=== PATIENT | male | born 1945 | race Caucasian/White ===

== ENCOUNTER → 2017-01-28 | Outpatient (CLI) | payer MEDICARE, OTHER ==
[~2017-01-28] VITALS: Ht 175.3 cm; Wt 97.6 kg
[~2017-01-28] MED LIST: BONIVA150 MG PO; CALCIUM 500500 MG PO; CALCIUM CITRATE1 TA1 PO; DULCOLAX STOOL100 MG PO; FOSAMAX70 MG PO; HCTZ 25MG TAB25 MG PO; HCTZ12.5TAB PO; LOVAZA1 GM PO; OYSTER CALCIUM500 M1 PO
[2017-01-28 06:54] VITALS: BP 129/77; PULSE 66
[2017-01-28 08:25] VITALS: BP 103/69; PULSE 61
== END ==
LOC: COL.RAD 06:30
DX: M54.5 Low back pain (principal)
CPT/HCPCS: J3301

== ENCOUNTER 2018-03-11 09:44 | Day surgery (SDC) | payer MEDICARE, OTHER ==
[~2018-03-11] VITALS: Ht 175.3 cm; Wt 91.6 kg
[2018-03-11 10:18] VITALS: BP 115/83; PULSE 65; TEMP 98.2
[2018-03-11 12:25] VITALS: BP 115/63; PULSE 59; TEMP 97.6
[2018-03-11 12:40] VITALS: BP 117/90; PULSE 57
[2018-03-11 12:55] VITALS: BP 110/74; PULSE 53
[2018-03-11 13:10] VITALS: BP 104/80; PULSE 50
[2018-03-11 13:19] VITALS: BP 94/70; PULSE 55
== END 2018-03-11 13:20 | disposition home or self-care (01) ==
LOC: SDCO 09:44
DX: K22.2 Esophageal obstruction (principal); K44.9 Diaphragmatic hernia without obstruction or gangrene; K29.60 Other gastritis without bleeding; K29.30 Chronic superficial gastritis without bleeding; K31.89 Other diseases of stomach and duodenum; I10 Essential (primary) hypertension; Z85.72 Personal history of non-Hodgkin lymphomas
CPT/HCPCS: OP; C1726; J2250; J3010; J7030

== ENCOUNTER → 2020-03-30 | Outpatient (CLI) | payer MEDICARE, OTHER ==
[~2020-03-30] VITALS: Ht 175.3 cm; Wt 92.5 kg
[~2020-03-30] MED LIST changes: +PROSCAR 5MG5 MG PO
[2020-03-30 12:16] VITALS: BP 169/85; PULSE 79
[2020-03-30 13:00] VITALS: BP 172/93; PULSE 76
== END ==
LOC: COL.RAD 12:00
DX: C82.08 Follicular lymphoma grade I, lymph nodes of multiple sites (principal)

== ENCOUNTER 2022-01-05 09:38 | Day surgery (SDC) | payer MEDICARE, OTHER ==
[~2022-01-05] VITALS: Ht 175.3 cm; Wt 93.2 kg
[~2022-01-05 09:38] MED LIST changes: +EPA FISH OIL1 SGL PO; +FLOMAX 0.40.4 MG/CAP PO; +MASON NATURAL2000 IU PO; +TYLENOL 8 HR PO
[2022-01-05] MEDS ORDERED: ZYLOPRIM 300MG300 MG PO (11:00)
[2022-01-05] MEDS ORDERED: CLEOCIN HCL300 MG PO (11:02)
[2022-01-05] MEDS ORDERED: HCTZ 25MG TAB25 MG PO (11:04)
[2022-01-05] MEDS ORDERED: ZOFRAN8 MG PO (11:05)
[2022-01-05] MEDS ORDERED: PREDNISONE20 MG PO (11:06)
[2022-01-05] MEDS ORDERED: VITAMIN D31000 I1 PO (11:07)
[2022-01-05 11:26] VITALS: BP 139/77; PULSE 76; TEMP 97.8
[2022-01-05 13:45] VITALS: BP 114/74; PULSE 71; TEMP 96.9
--- NOTE | 2022-01-05 13:45 | NUR ---
PT TO BAY 3 FROM OR. VS OBTAINED. PT TOLERATING PEPSI AND MUFFIN. WILL CONTINUE TO MONITOR PT.
[2022-01-05 14:00] VITALS: BP 119/72; PULSE 64
[2022-01-05] MEDS ORDERED: NORCO 325 MG-51 TAB PO (14:03)
--- NOTE | 2022-01-05 14:15 | NUR ---
IV DC'D. PT TOLERATED WELL.
--- NOTE | 2022-01-05 14:15 | NUR ---
PT DENIES ANY NEEDS AT THIS TIME. PT CONTINUES TO REST COMFORTABLY. WILL CONTINUE TO MONITOR.
--- NOTE | 2022-01-05 14:25 | NUR ---
DISCHARGE EDUCATION COMPLETED WITH PT AND HIS . THEY VERBALIZED UNDERSTANDING OF HOME AND FOLLOW UP CARE. ALL QUESTIONS ANSWERED. DISCHARGE PAPERWORK GIVEN TO PT.
--- NOTE | 2022-01-05 14:40 | NUR ---
PT OFF UNIT PER WHEELCHAIR. PT DISCHARGE TO HOME WITH PER PERSONAL VEHICLE.
== END 2022-01-05 14:40 | disposition home or self-care (01) ==
LOC: SDCO 09:38
DX: C85.91 Non-Hodgkin lymphoma, unspecified, lymph nodes of head, face, and neck (principal)
CPT/HCPCS: C1788; J0690; J1644; J2405; J2704; J3010; J7120

== ENCOUNTER → 2022-07-17 | Outpatient (CLI) | payer MEDICARE, OTHER ==
[~2022-07-17] MED LIST changes: +CLEOCIN HCL300 MG PO; +NORCO 325 MG-51 TAB PO; +PREDNISONE20 MG PO; +VITAMIN D31000 I1 PO; +ZOFRAN8 MG PO; +ZYLOPRIM 300MG300 MG PO
== END ==
LOC: COL.RAD 09:27
DX: R22.1 Localized swelling, mass and lump, neck (principal); I82.C12 Acute embolism and thrombosis of left internal jugular vein
CPT/HCPCS: Q9967

== ENCOUNTER → 2022-08-10 | Outpatient (CLI) | payer MEDICARE, OTHER ==
[~2022-08-10] MED LIST changes: +VITAMIN D31000 IU PO
== END ==
LOC: COL.VAS 08:00
DX: C82.08 Follicular lymphoma grade I, lymph nodes of multiple sites (principal); I82.C11 Acute embolism and thrombosis of right internal jugular vein

== ENCOUNTER 2022-08-25 01:21 | Emergency (ER) | payer MEDICARE, OTHER ==
[~2022-08-25] VITALS: Ht 175.3 cm; Wt 95.5 kg
[2022-08-25 01:22] VITALS: TEMP 98
[2022-08-25 01:55] LABS: BASO # 0.1 K/mm3 (0.0-0.2); BASO % 0.7 % (0.0-2.0); EOS # 0.3 K/mm3 (0.0-0.7); GRAN % 76.3 % (42.2-75.2); HEMATOCRIT 38.9 % (42.0-52.0); HEMOGLOBIN 12.2 g/dl (13.5-18.0); LYMPH # 1.1 K/mm3 (1.2-3.4); LYMPH % 12.2 % (20.0-51.0); MEAN CELL VOLUME 80 fl (80.0-100.0); MEAN CORPUSCULAR HEMOGLOBIN 25 pg (27-31); MEAN CORPUSCULAR HGB CONC 31 g/dl (33.0-37.0); MEAN PLATELET VOLUME 9.3 fl (7.4-10.4); MONO # 0.6 K/mm3 (0.1-0.6); MONO % 6.9 % (1.7-9.3); PLATELET COUNT 315 K/mm3 (130-400); RED BLOOD COUNT 4.84 M/mm3 (4.20-5.60); REDCELL DISTRIBUTION WIDTH-CV 14.9 % (11.5-14.5)
[2022-08-25 02:14] LABS: ALBUMIN 3.7 gm/dL (3.4-4.8); BILIRUBIN,TOTAL 0.6 mg/dL (0.2-1.2); CALCIUM 9.7 mg/dL (8.4-10.2); CREATININE, serum 1.22 mg/dL (0.72-1.25); TOTAL PROTEIN 6.4 gm/dL (6.2-8.1)
[2022-08-25 04:30] VITALS: BP 108/68; PULSE 81
== END 2022-08-25 04:30 | disposition home or self-care (01) ==
LOC: COL.ER 01:21
PROVIDERS: Family Medicine
DX: R55 Syncope and collapse (principal)
CPT/HCPCS: J7030